=== PATIENT | male | born 1985 | race Caucasian/White ===

== ENCOUNTER 2016-09-15 23:01 | Emergency (ER) | payer MEDICAID ==
[~2016-09-15] VITALS: Ht 188 cm; Wt 90.0 kg
[2016-09-15] MEDS ORDERED: MAALOX/HYOSCYAMINE/LIDOCAINE 45 ML BTL ONE (23:12)
[2016-09-15] MEDS ORDERED: METOCLOPRAMIDE 5 MG/ML, 2ML ONE (23:12)
[2016-09-15] MEDS ORDERED: DIPHENHYDRAMINE 50 MG/ML, 1ML ONE (23:12)
[2016-09-15] MEDS ORDERED: FAMOTIDINE 20 MG/2 ML ONE (23:12)
[2016-09-15] MEDS ORDERED: MORPHINE SULFATE 4 MG/ML, 1ML ONE ×2 (23:13→23:58)
[2016-09-15] MEDS: MORPHINE SULFATE 4 MG/ML, 1ML IVPush PRN (23:27)
[2016-09-15] MEDS ORDERED: MAALOX/HYOSCYAMINE/LIDOCAINE 45 ML BTL PO ONE (23:30)
[2016-09-15] MEDS ORDERED: FAMOTIDINE 20 MG/2 ML IVP ONE (23:30)
[2016-09-15] MEDS ORDERED: DIPHENHYDRAMINE 50 MG/ML, 1ML IVPush ONE (23:30)
[2016-09-15] MEDS ORDERED: METOCLOPRAMIDE 5 MG/ML, 2ML IVPush ONE (23:30)
[2016-09-15] MEDS ORDERED: SODIUM CHLORIDE 0.9% 1,000ML IVBOLUS ONE (23:30)
[2016-09-15 23:38] LABS: HEMATOCRIT 43.3 % (39.2-51.8); HEMOGLOBIN 14.3 g/dL (13.7-18.0); WHITE BLOOD COUNT 12.9 x10^3/uL (3.4-10)
[2016-09-15 23:51] LABS: BLOOD UREA NITROGEN 5 mg/dL (7-18)
[2016-09-15 23:54] LABS: ASPARTATE AMINO TRANSFERASE 18 U/L (15-37)
[2016-09-16] MEDS: MORPHINE SULFATE 4 MG/ML, 1ML IVPush PRN (00:01)
[2016-09-16 00:05] VITALS: BP 118/62
[2016-09-16] MEDS ORDERED: POTASSIUM CHLORIDE 20 MEQ TAB.ER.PRT ONE (00:28)
[2016-09-16] MEDS ORDERED: POTASSIUM CHLORIDE 10% 20 MEQ/15 ML UDC PO ONE (00:30)
== END 2016-09-16 01:42 | disposition home or self-care (01) ==
LOC: ED 23:59
DX: K80.70 Calculus of gallbladder and bile duct without cholecystitis without obstruction (principal); R11.2 Nausea with vomiting, unspecified; E86.0 Dehydration; E87.6 Hypokalemia
CPT/HCPCS: 36415; 76700; 80053; 83690; 85025; 96361; 96374; 96375; 96376; 99285; J1200; J2765; J7030; S0028

== ENCOUNTER 2016-12-02 16:17 | Emergency (ER) | payer SELFPAY ==
[~2016-12-02] VITALS: Ht 190.5 cm; Wt 91.0 kg
[2016-12-02] MEDS ORDERED: ASPIRIN 81 MG TABLET CHEW ONE (16:50)
[2016-12-02 16:59] LABS: HEMATOCRIT 45.1 % (39.2-51.8); HEMOGLOBIN 15.1 g/dL (13.7-18.0); WHITE BLOOD COUNT 8.9 x10^3/uL (3.4-10)
[2016-12-02] MEDS ORDERED: SODIUM CHLORIDE 0.9% 1,000ML IVBOLUS ONE (17:00)
[2016-12-02] MEDS ORDERED: ASPIRIN 81 MG TABLET CHEW PO ONE (17:00)
[2016-12-02 17:04] LABS: ASPARTATE AMINO TRANSFERASE 14 U/L (15-37); BLOOD UREA NITROGEN 6 mg/dL (7-18)
[2016-12-02] MEDS ORDERED: POTASSIUM CHLORIDE 20 MEQ TAB.ER.PRT PO ONE (18:00)
[2016-12-02] MEDS ORDERED: POTASSIUM CHLORIDE 20 MEQ TAB.ER.PRT ONE (18:14)
[2016-12-02 18:23] VITALS: BP 102/50
== END 2016-12-02 18:26 | disposition home or self-care (01) ==
LOC: ED 17:25
DX: E87.6 Hypokalemia (principal); F17.210 Nicotine dependence, cigarettes, uncomplicated
CPT/HCPCS: 36415; 71010; 80053; 82330; 85025; 93005; 96360; 96361; 99285; J7030

== ENCOUNTER 2018-03-02 14:06 | Emergency (ER) | payer MEDICAID ==
[~2018-03-02] VITALS: Ht 188 cm; Wt 88.9 kg
[2018-03-02 14:34] LABS: MEAN CORPUSCULAR HEMOGLOBIN 29.5 pg (27.5-34.5); MEAN CORPUSCULAR HGB CONC 33.7 g/dL (33.2-36.2); MEAN CORPUSCULAR VOLUME 87.5 fL (81-97); MEAN PLATELET VOLUME 7.9 fL (7.4-10.4); PLATELET COUNT 451 x10^3/uL (130-400); RED BLOOD COUNT 5.45 x10^6/uL (4.38-5.82); RED CELL DISTRIBUTION WIDTH 14.9 % (9.4-14.8)
[2018-03-02 14:36] LABS: MD YES
[2018-03-02 14:44] LABS: ALANINE AMINOTRANSFERASE 20 U/L (12-78); ALBUMIN 4.3 g/dL (3.4-5.0); ANION GAP 7 mmol/L (5-15); CALCIUM 8.9 mg/dL (8.5-10.1); CHLORIDE 106 mmol/L (98-107); CREATININE 0.99 mg/dL (0.7-1.3)
[2018-03-02 14:46] LABS: ALKALINE PHOSPHATASE 101 U/L (45-117); BILIRUBIN,TOTAL 0.5 mg/dL (0.2-1.0); TOTAL PROTEIN 8.8 g/dL (6.4-8.2)
[2018-03-02 14:48] LABS: MICROSCOPIC NOT IND
[2018-03-02 14:56] LABS: CULTURE INDICATED? NO
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
[2018-03-02 15:01] LABS: EOS#(MANUAL) 0.15 x10^3/uL (0.0-0.4); EOS% (MANUAL) 1 % (1-7); LYMPH#(MANUAL) 5.55 x10^3/uL (1-3.4); LYMPHS% (MANUAL) 38 % (22-44); MONOS#(MANUAL) 0.73 x10^3/uL (0.3-2.7); MONOS% (MANUAL) 5 % (2-9); REACTIVE LYMPHS # (MANUAL) 0.73 x10^3/uL (0-0); REACTIVE LYMPHS % (MANUAL) 5 % (0-0); SEG#(MANUAL) 7.45 x10^3/uL (1.8-6.8); SEGS% (MANUAL) 51 % (42-75)
[2018-03-02 15:03] LABS: <RBC MORPHOLOGY> NORMAL
[2018-03-02 15:05] LABS: <PLATELET ESTIMATE> INCREASED; <PLT MORPHOLOGY> NORMAL PLT MORPH
--- NOTE | 2018-03-02 15:22 | NUR ---
CHART UP FOR RECHECK, PT UPDATED ON POC (RECHECK), DENIES PAIN CURRENTLY. DENIES ANY NEEDS/CONCERNS.
--- NOTE | 2018-03-02 16:09 | NUR ---
PT UPDATED ON POC (CT) IV STARTED. PT CONTINUES TO DENY NEED FOR PAIN MEDICATION. EDUCATED TO CALL RN IF PAIN BECOMES INTOLERABLE.
--- NOTE | 2018-03-02 16:14 | NUR ---
PT REPORTS CHOLESYSTECTOMY APPROX 3 MO AGO
--- NOTE | 2018-03-02 16:38 | NUR ---
PT OFF FLOOR TO CT
[2018-03-02] MEDS ORDERED: OMNIPAQUE 350 MG/ML, 100ML BOTTLE ONE (16:52)
[2018-03-02 16:54] VITALS: BP 103/59
--- NOTE | 2018-03-02 16:54 | NUR ---
PT BACK IN ROOM FROM CT, CONTINUES TO DENY NEED FOR PAIN MEDICATION. MOTHER AT BEDSIDE.
--- NOTE | 2018-03-02 17:16 | NUR ---
IN FOR RECHECK, PT AGREES TO POC (DC)/ NARCOTIC INFO SHEET SIGNED BY PT PRIOR TO PRESCRIPTION GIVEN
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
== END 2018-03-02 17:20 | disposition home or self-care (01) ==
LOC: ED 15:44
DX: R10.11 Right upper quadrant pain (principal); D72.829 Elevated white blood cell count, unspecified; Z90.49 Acquired absence of other specified parts of digestive tract; R30.9 Painful micturition, unspecified
CPT/HCPCS: 36415; 74177; 80053; 81003; 83690; 85025; 99284; Q9967

== ENCOUNTER 2018-07-20 13:39 | Emergency (ER) | payer MEDICAID ==
[~2018-07-20] VITALS: Ht 188 cm; Wt 92.9 kg
[2018-07-20 13:43] VITALS: BP 120/77
--- NOTE | 2018-07-20 14:23 | NUR ---
PT REFUSED MILLY WRAP
== END 2018-07-20 14:25 | disposition home or self-care (01) ==
LOC: ED 14:19
DX: M25.562 Pain in left knee (principal); S83.412A Sprain of medial collateral ligament of left knee, initial encounter; X58.XXXA Exposure to other specified factors, initial encounter; Y93.89 Activity, other specified; Y92.89 Other specified places as the place of occurrence of the external cause; Y99.8 Other external cause status
CPT/HCPCS: 99283

== ENCOUNTER 2019-07-14 08:35 | Emergency (ER) | payer MEDICAID, OTHER ==
[~2019-07-14] VITALS: Ht 188 cm; Wt 94.4 kg
--- NOTE | 2019-07-14 08:51 | NUR ---
PT. IS A & O X 4 WITH A [employer] OF 15. PT. HAS C/O DIZZINESS AFTER BEING EXPOSED TO [place] ON THURSDAY. PT. IS PINK, WARM AND DRY. PT.'S NECK IS MIDLINE. NO JVD NOTED. PT.'S CHEST RISE AND FALL IS SYMMETRICAL. LUNGS ARE CTA. S1 S2 NOTED WITHOUT MURMURS RUBS OR GALLOPS. ABD. IS SOFT AND FLAT WITH BS + X 4 QUADS. PULSES + 2 THROUGHOUT. CAP REFILL IS BRISK, LESS THAN 3 SECONDS. PT.'S PUPILS ARE SHALA. PT. HAS NO LATERALIZING DEFICITS NOTED, PARATHESIS OR ATAXIS. PT. WAS AMBULATORY WITH A STEADY GAIT. PT. HAS THE PULSE OX AND BP CUFF IN PLACE. SIDERAILS ARE UP X 2 WITH THE CALL LIGHT IN PLACE. HOB IS ELEVATED GREATER THAN 30 DEGREES. VSS. (BREAK NOTE)
[2019-07-14] MEDS ORDERED: FLUORESCEIN/BENOXINATE 5 ML DROPS OP ONE (09:00)
[2019-07-14] MEDS ORDERED: ONDANSETRON ODT 8 MG ONE (09:00)
[2019-07-14] MEDS ORDERED: ONDANSETRON ODT 4 MG PO ONE (09:00)
[2019-07-14] MEDS ORDERED: FLUORESCEIN OPHTHALMIC 1 MG STRIP ONE (09:05)
--- NOTE | 2019-07-14 09:14 | NUR ---
RECEIVED REPORT FROM BOBBY BOOGIE. PT RESTING ON CLAUDIA.
[2019-07-14 09:28] LABS: BASOPHILS # (AUTO) 0.09 x10^3/uL (0-0.1); BASOPHILS % (AUTO) 1 % (0-1); EOSINOPHILS # (AUTO) 0.26 x10^3/uL (0-0.4); EOSINOPHILS % (AUTO) 2 % (1-7); LYMPHOCYTES # (AUTO) 3.53 x10^3/uL (1-3.4); LYMPHOCYTES % (AUTO) 28 % (22-44); MD NO; MEAN CORPUSCULAR HEMOGLOBIN 29.3 pg (27.5-34.5); MEAN CORPUSCULAR HGB CONC 33.1 g/dL (33.2-36.2); MEAN CORPUSCULAR VOLUME 88.6 fL (81-97); MEAN PLATELET VOLUME 7.8 fL (7.4-10.4); MONOCYTES # (AUTO) 0.62 x10^3/uL (0.2-0.8); MONOCYTES % (AUTO) 5 % (2-9); NEUTROPHILS # (AUTO) 8.14 x10^3/uL (1.8-6.8); NEUTROPHILS % (AUTO) 64 % (42-75); PLATELET COUNT 319 x10^3/uL (130-400); RED BLOOD COUNT 5.27 x10^6/uL (4.38-5.82); RED CELL DISTRIBUTION WIDTH 14.3 % (9.4-14.8)
[2019-07-14 09:37] LABS: ALBUMIN 3.7 g/dL (3.4-5.0); ANION GAP 6 mmol/L (5-15); CALCIUM 8.6 mg/dL (8.5-10.1); CHLORIDE 111 mmol/L (98-107); CREATININE 0.76 mg/dL (0.7-1.3)
--- NOTE | 2019-07-14 09:53 | NUR ---
PT CHART REVIEWED AND PLACED FOR RECHECK.
[2019-07-14 10:34] VITALS: BP 110/62
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
== END 2019-07-14 10:43 | disposition home or self-care (01) ==
LOC: ED 09:38
DX: R42 Dizziness and giddiness (principal); R51 Headache; H57.10 Ocular pain, unspecified eye; R11.0 Nausea; E87.6 Hypokalemia; I44.5 Left posterior fascicular block; F17.210 Nicotine dependence, cigarettes, uncomplicated
CPT/HCPCS: 36415; 80048; 82040; 85025; 93005; 99284; Q0162